=== PATIENT | female | born 1975 | race Caucasian/White ===

== ENCOUNTER 2017-12-31 13:33 | Emergency (ER) | payer OTHER ==
[~2017-12-31] VITALS: Ht 162.6 cm; Wt 114.8 kg
[2017-12-31 13:40] VITALS: BP 135/81; Ht 162.6 cm; Wt 114.8 kg
== END 2017-12-31 16:38 | disposition home or self-care (01) ==
LOC: ED 13:33
DX: S61.202A Unspecified open wound of right middle finger without damage to nail, initial encounter (principal); R03.0 Elevated blood-pressure reading, without diagnosis of hypertension; Z88.0 Allergy status to penicillin; W45.8XXA Other foreign body or object entering through skin, initial encounter; Y93.89 Activity, other specified; Y92.89 Other specified places as the place of occurrence of the external cause; Y99.8 Other external cause status
CPT/HCPCS: 90715

== ENCOUNTER 2019-02-17 08:05 | Emergency (ER) | payer OTHER ==
[~2019-02-17] VITALS: Ht 154.9 cm; Wt 106.1 kg
[2019-02-17 08:28] VITALS: Ht 154.9 cm; Wt 106.1 kg
[2019-02-17 09:20] LABS: BASOPHIL % 0.2 % (0-2); PLATELET COUNT 262 x10^3mcL (130-400)
[2019-02-17 09:30] LABS: CALCIUM 8.4 mg/dL (8.5-10.1); CARBON DIOXIDE 25.3 mmol/L (21-32); CHLORIDE SERUM 106 mmol/L (98-107); CREATININE SERUM 0.7 mg/dL (0.6-1.0); GFR1 > 60 mL/min; GLUCOSE SERUM 93 mg/dL (74-106); POTASSIUM SERUM 3.9 mmol/L (3.5-5.1); SODIUM SERUM 139 mmol/L (136-145)
[2019-02-17 09:34] LABS: ALKALINE PHOSPHATASE 64 U/L (46-116); ALT/SGPT 25 U/L (14-59); AST/SGOT 13 U/L (15-37); BILIRUBIN TOTAL 0.46 mg/dL (0.20-1.00); LIPASE 101 IU/L (73-393); TOTAL PROTEIN, SERUM 7.2 g/dL (6.4-8.2)
[2019-02-17 09:36] LABS: ALBUMIN 3.2 g/dL (3.4-5.0)
[2019-02-17 11:29] LABS: UA SPECIFIC GRAVITY 1.015 (1.005-1.035); microscopic required? YES; urine erythrocyte 2+ (NEGATIVE)
[2019-02-17 13:05] VITALS: BP 128/78
== END 2019-02-17 13:05 | disposition home or self-care (01) ==
LOC: ED 08:05
PROVIDERS: Emergency Medicine
DX: N30.90 Cystitis, unspecified without hematuria (principal); Z88.0 Allergy status to penicillin
CPT/HCPCS: 36415; 87491; 87591; J0696; J2001

== ENCOUNTER 2019-06-16 10:08 | Emergency (ER) | payer OTHER ==
[~2019-06-16] VITALS: Ht 162.6 cm; Wt 109.8 kg
[2019-06-16 10:18] VITALS: Ht 162.6 cm; Wt 109.8 kg
[2019-06-16 13:12] VITALS: BP 120/73
== END 2019-06-16 13:15 | disposition home or self-care (01) ==
LOC: ED 10:08
DX: S39.012A Strain of muscle, fascia and tendon of lower back, initial encounter (principal); R51 Headache; Z88.0 Allergy status to penicillin; V49.88XA Car occupant (driver) (passenger) injured in other specified transport accidents, initial encounter; Y93.89 Activity, other specified; Y92.89 Other specified places as the place of occurrence of the external cause; Y99.8 Other external cause status
CPT/HCPCS: J1885

== ENCOUNTER 2020-10-10 07:28 | Emergency (ER) | payer OTHER, SELFPAY ==
[~2020-10-10] VITALS: Ht 162.6 cm; Wt 104.3 kg
[2020-10-10 07:31] VITALS: BP 125/80; Ht 162.6 cm; Wt 104.3 kg
== END 2020-10-10 08:00 | disposition home or self-care (01) ==
LOC: ED 07:28
DX: J02.8 Acute pharyngitis due to other specified organisms (principal); Z20.828 Contact with and (suspected) exposure to other viral communicable diseases; Z88.0 Allergy status to penicillin
CPT/HCPCS: U0003

== ENCOUNTER 2020-10-25 07:07 | Emergency (ER) | payer OTHER, SELFPAY ==
[~2020-10-25] VITALS: Ht 162.6 cm; Wt 104.3 kg
[2020-10-25 07:09] VITALS: BP 147/92; Ht 162.6 cm; Wt 104.3 kg
== END 2020-10-25 08:03 | disposition home or self-care (01) ==
LOC: ED 07:07
DX: U07.1 COVID-19 (principal); B34.9 Viral infection, unspecified; Z88.0 Allergy status to penicillin
CPT/HCPCS: 87804; U0003